=== PATIENT | male | born 1980 | race Caucasian/White ===

== ENCOUNTER → 2023-10-04 10:59 | Outpatient (CLI) | payer OTHER, SELFPAY ==
--- NOTE | 2023-10-04 | DI.RAD.S_ITS ---
PROCEDURE: FL JOINT INJECTION MEDIUM LT INDICATIONS: Adhesive capsulitis of left shoulder COMPARISON: None. TECHNIQUE: The indications, alternatives, benefits, risks, and complications of the procedure were explained to the patient. Written informed consent was obtained and placed in the chart. The patient was placed in an appropriate position on the fluoroscopy table, and a site was chosen for percutaneous access under fluoroscopic guidance. The site was prepped and draped in a sterile fashion. Local anesthetic was administered using a 1% lidocaine solution. A hypodermic or spinal needle was then used to access the symptomatic joint. Intra-articular location of the needle tip was confirmed by injecting a small amount of contrast, followed by steroid administration. The needle was then withdrawn, and a bandage applied to the puncture site. FINDINGS: Joint injected: Left shoulder Medications injected: Kenalog mL of 40 mg/mL Kenalog and 0.5% Ropivacaine mixture. Patient's pain before injection: 2 out of 10. Patient's pain after injection: 1 out of 10. Complications: None. IMPRESSION: Successful fluoroscopically guided administration of steroid and anaesthetic solution into the left shoulder joint. Dictated by: Julio Cesar Loving M.D. on 10/04/2023 at 14:38 Approved by: Julio Cesar Loving M.D. on 10/04/2023 at 14:38
== END ==
PROVIDERS: Referring Provider Physician Assistant Surgical; Visit Provider Physician Assistant Surgical
DX: M75.02 Adhesive capsulitis of left shoulder (principal)
CPT/HCPCS: 20605; 77002